=== PATIENT | male | born 1965 | race Caucasian/White ===

== ENCOUNTER 2021-01-14 21:15 | Emergency (ER) | payer OTHER ==
[2021-01-14 22:06] LABS: BASOPHIL 0.7 % (0-2); EOSINOPHIL 1.7 % (0-5); HCT 46.5 % (42.0-52.0); HGB 14.7 g/dl (13.2-18.0); LYMPHOCYTE 18.2 % (15-48); MCH 26.9 pg (25.0-31.0); MCHC 31.6 g/dL (32.0-36.0); MCV 85.2 fL (78.0-100.0); MONOCYTE 12.4 % (0-12); MPV 11.3 fL (6.0-9.5); NEUTROPHIL 66.4 % (41-80); NRBC 0; PLT 219 K/uL (150-400); RBC 5.46 M/uL (4.70-6.00); RDW 15.2 % (11.5-14.0)
[2021-01-14 22:19] LABS: ALBUMIN 3.3 g/dL (3.4-5.0); BILIRUBIN - TOTAL 1.5 mg/dL (0.2-1.0); BUN/CREAT RATIO (CALC) 14.6 RATIO; C-REACTIVE PROTEIN 4.4 mg/dL (<=0.90); CREATININE 1.3 mg/dL (0.67-1.17); GLOBULIN (CALCULATION) 3.9 g/dL; POTASSIUM 4.4 mmol/L (3.5-5.1); TOTAL PROTEIN 7.2 g/dL (6.4-8.2)
[2021-01-14 22:26] LABS: LACTIC ACID 1.6 mmol/L (0.4-1.9)
[2021-01-15 01:27] LABS: BILIRUBIN NEGATIVE (NEGATIVE); BLOOD NEGATIVE Ery/uL (NEGATIVE); CLARITY CLEAR (CLEAR); COLOR YELLOW (YELLOW); GLUCOSE (U) NORMAL (NORMAL); LEUKOCYTES NEGATIVE Leu/uL (NEGATIVE); NITRITE NEGATIVE (NEGATIVE); PROTEIN TRACE (LOW) mg/dL (NEGATIVE); SPECIFIC GRAVITY 1.015 (1.001-1.030); UROBILINOGEN 0.2 mg/dL (0.2-1.0); pH 5.5 (5.0-9.0)
[2021-01-15 01:37] LABS: MUCOUS TRACE; SQUAMOUS EPITHELIAL CELLS RARE; URINARY RBC RARE
[2021-01-15] MEDS ORDERED: K-DUR20 MEQ PO (02:20)
[2021-01-15] MEDS ORDERED: LASIX40 MG PO (02:20)
[2021-01-15] MEDS ORDERED: DOXYCYCLINE MO100 MG PO (02:20)
[2021-01-15] MEDS ORDERED: MOTRIN600 MG PO (02:20)
== END 2021-01-15 02:35 | disposition home or self-care (01) ==
LOC: FER 21:15
PROVIDERS: Emergency Medicine
DX: I11.0 Hypertensive heart disease with heart failure (principal); I50.9 Heart failure, unspecified; L03.116 Cellulitis of left lower limb; L03.115 Cellulitis of right lower limb; R91.1 Solitary pulmonary nodule; R14.0 Abdominal distension (gaseous); F17.210 Nicotine dependence, cigarettes, uncomplicated; Z20.822 Contact with and (suspected) exposure to COVID-19
CPT/HCPCS: 36415; 71045; 71275; 80053; 81001; 82150; 83605; 83880; 84145; 84484; 85025; 86140; 87040; 87088; 93005; J1940; Q9967; U0002